=== PATIENT | male | born 1955 | race Two or more races ===

== ENCOUNTER 2018-06-04 12:06 | Emergency (ER) | payer BC ==
[2018-06-04 12:10] VITALS: BP 170/64; PULSE 89; TEMP 97.2; BMI 18.0
--- NOTE | 2018-06-04 12:59 | PDOC ---
Attending Attestation - [facility] HPI: 06/04/18 13:09 The patient is a 62 year old male, with a significant past medical history of seasonal epistaxis, hld, diabetes, asthma, who presents to the emergency department with nose bleed this morning while drinking coffee this morning. The patients states she noticed blood coming out of bilateral nostrils. The patient states he has been having nosebleeds intermittently over the past several days, however, states the nose bleed this morning was the most blood. He denies any other complaints. He states he gets nose bleeds every Winter. The patient denies chest pain, shortness of breath, headache and dizziness. The patient denies fever, chills, nausea, vomit, diarrhea and constipation. The patient denies dysuria, frequency, urgency and hematuria. Allergies: NKDA - Physicial Exam PE: 06/04/18 13:10 Constitutional: Awake, alert, oriented. No acute distress. Head: Normocephalic. Atraumatic Eyes: PERRL. EOMI. Conjunctivae are not pale. ENT: (+) Dried blood left nare. Mucous membranes are moist and intact. Posterior pharynx without exudates or erythema. Uvula midline. Neck: Supple. Full ROM. No lymphadenopathy. Cardiovascular: Regular rate. Regular rhythm. S1, S2 regular. Distal pulses are 2+ and symmetric. Pulmonary/Chest: No evidence of respiratory distress. Clear to auscultation bilaterally No wheezing, rales or rhonchi. Abdominal: Soft and non-distended. There is no tenderness. No rebound, guarding or rigidity. No organomegaly. No palpable masses. Good bowel sounds. Back: No CVA tenderness. Musculoskeletal: No edema. No cyanosis. No clubbing. Full range of motion in all extremities. Nocalf tenderness. Radial/pedal pulses are intact and 2+ bilaterally Skin: Skin is warm and dry. No petechiae. No purpura. Neurological: Alert and oriented to person, place, and time. Cranial nerves II -XII are grossly intact. Normal speech. Strength is grossly symmetric. No sensory deficits. Psychiatric: Good eye contact. Normal interaction, affect and behavior. - Medical Decision Making 06/04/18 13:10 Documentation prepared by Ritu Woodson, acting as medical office worker for Johanna Fernandez DO <Ritu Woodson - Last Filed: 06/04/18 15:05> - Resident Resident Name: AndrewAddy - ED Attending Attestation I have performed the following: I have examined & evaluated the patient, The case was reviewed & discussed with the resident, I agree w/resident's findings & plan, Exceptions are as noted - Medical Decision Making 06/04/18 12:59 I, Dr. Johanna Fernandez, DO, attest that this document has been prepared under my direction and personally reviewed by me in its entirety. I further attest, that it accurately reflects all work, treatment, procedures and medical decision -making performed by me. 06/04/18 15:07 62yo male with epistaxis -had bleeding this week, saw Dr. 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 -pt is nontoxic in appearance, no bleeding during hte ED visit. Answered all questions. Stable for d/c to home <Johanna Fernnadez - Last Filed: 06/04/18 15:10>
--- NOTE | 2018-06-04 13:04 | PDOC ---
History of Present Illness - General Chief Complaint: Nasal Bleeding Stated Complaint: NOSE BLEED History Source: Patient Exam Limitations: No Limitations - History of Present Illness Initial Comments: 06/04/18 13:37 62 yo M with a hx of HTN, DM, HLD, asthma, and recurrent nose bleeds (seasonal in the winter) presents to the emergency department s/p nose bleeding event that occurred today. Per the patient, he stated he was having his breakfast this morning when he started bleeding from both nostrils and dripping down his throat describing the event as the "worst nosebleed ever". He was recently evaluated by Dr. Augustine 2 days ago after an ED visit for epistaxis on Tuesday06/04/18 14:02 Past History - Past Medical History Allergies/Adverse Reactions: Allergies Allergy/AdvReac Type Severity Reaction Status Date / Time No Known Allergies Allergy Verified 06/04/18 12:10 Home Medications: Ambulatory Orders Sodium Chloride Nasal Everson [Manati Everson Nasal Everson] 2 spray NS BID #1 spraybtl 06/04/18 Asthma: Yes COPD: No Diabetes: Yes Hypercholesterolemia: Yes - Suicide/Smoking/Psychosocial Hx Smoking History: Never smoked *Physical Exam - Vital Signs Last Vital Signs Temp Pulse Resp BP Pulse Ox 97.2 F L 89 18 170/64 06/04/18 12:07 06/04/18 12:07 06/04/18 12:07 06/04/18 12:07 Moderate Sedation - Procedure Monitoring Vital Signs: Procedure Monitoring Vital Signs Temperature 97.2 F L 06/04/18 12:07 Pulse Rate 89 06/04/18 12:07 Respiratory Rate 18 06/04/18 12:07 Blood Pressure 170/64 06/04/18 12:07 O2 Sat by Pulse Oximetry (%) *DC/Admit/Observation/Transfer Diagnosis at time of Disposition: Anterior epistaxis - Discharge Dispostion Disposition: HOME Decision to Admit order: No - Prescriptions Prescriptions: Sodium Chloride Nasal Everson [Manati Everson Nasal Everson] 2 spray NS BID #1 spraybtl - Referrals Referrals: Lb Candelaria MD [Staff Physician] - [facility] [Provider Group] - Patient Instructions Printed Discharge Instructions: DI for Nosebleed Additional Instructions: you were evaluated in the emergency department for nosebleed. please follow up with your ears nose throat doctor within 1 week for follow up care and management. please return to the emergency department if your nose bleeds are out of control, become lightheaded, short of breath, or near fainting during nosebleeds, and nosebleeds with fever and chills. Please follow the directions on the ocean spray as prescribed. this means spray twice in each nostril in the morning and twice in each nostril at night. please follow the precautions in this discharge packet. Please create an appointment with our primary medical doctor group for a future appointment. Thank you. - Post Discharge Activity Forms/Work/School Notes: Back to Work
[2018-06-04] MEDS ORDERED: OXYMETAZOLINE 0.05% NASAL SOLUTION 15 ML BOTTLE NS ONE (13:06)
== END 2018-06-04 14:34 | disposition home or self-care (01) ==
LOC: JER 12:06
PROC: 093K7ZZ Control Bleeding in Nasal Mucosa and Soft Tissue, Via Natural or Artificial Opening (ICD-10-PCS; principal; 2018-06-04)
DX: R04.0 Epistaxis (principal); I10 Essential (primary) hypertension; E11.9 Type 2 diabetes mellitus without complications; E78.5 Hyperlipidemia, unspecified; E78.00 Pure hypercholesterolemia, unspecified; J45.909 Unspecified asthma, uncomplicated
CPT/HCPCS: 99281-25

== ENCOUNTER 2018-10-30 12:23 | Inpatient (IN) | payer BC | END 2018-11-03 16:21 | disposition home or self-care (01) | LOC: JER 12:23 → JERBED 14:03 → J7W 16:55 ==

== ENCOUNTER 2021-07-24 05:57 | Emergency (ER) | payer BC ==
[2021-07-24 06:12] VITALS: TEMP 97.2; BMI 18.3
[2021-07-24] MEDS ORDERED: guaiFENesin 200 MG/10 ML 10 ML UNIT-DOSE CUPS PO ONE (08:48)
[2021-07-24] MEDS ORDERED: guaiFENesin 200 MG/10 ML 10 ML UNIT-DOSE CUPS ONE (08:59)
[2021-07-24 09:40] LABS: ALBUMIN 3.9 g/dl (3.4-5.0); CALCIUM 9.1 mg/dL (8.5-10.1)
[2021-07-24 09:44] LABS: CREATININE 0.6 mg/dL (0.55-1.3)
[2021-07-24 09:45] LABS: BILIRUBIN,TOTAL 0.6 mg/dL (0.2-1); TOT PROT 7.5 g/dl (6.4-8.2)
[2021-07-24 11:04] LABS: BASO % 1.2 % (0-2.0); EOS % 9.2 % (0-4.5); HEMATOCRIT 34.7 % (35.4-49); HEMOGLOBIN 11.9 GM/dL (11.7-16.9); LYMPH % 15.4 % (8-40); MCH 31.8 pg (25.7-33.7); MCHC 34.3 g/dl (32.0-35.9); MEAN CELL VOLUME 92.8 fl (80-96); MONO % 10.6 % (3.8-10.2); NEUT % 63.6 % (42.8-82.8); PLATELET COUNT 315 10^3/uL (134-434); RBC 3.74 M/mm3 (4.00-5.60); RDW 14.4 % (11.9-15.9); WHITE BLOOD COUNT 6.1 K/mm3 (4.0-10.0)
[2021-07-24 11:06] LABS: MEAN PLT VOLUME 5.6 fl (7.5-11.1)
[2021-07-24 13:29] VITALS: BP 170/95; PULSE 83
[2021-07-25 14:11] LABS: SARS-CoV-2 NAA Not Detected (Not Detected)
== END 2021-07-24 13:30 | disposition home or self-care (01) ==
LOC: JER 05:57
DX: R04.2 Hemoptysis (principal); R05.1 Acute cough; Z87.891 Personal history of nicotine dependence
CPT/HCPCS: 36415; 71046-TC-FY; 80053; 85025; 87804; 87807; 99285-25; C9803; U0003; U0005